=== PATIENT | female | born 1995 | race Two or more races ===

== ENCOUNTER 2023-10-08 17:56 | Emergency (ER) | payer MEDICAID, OTHER ==
[~2023-10-08] VITALS: Ht 154.9 cm; Wt 95.4 kg
[2023-10-08 18:00] VITALS: BP 149/87; PULSE 83; RESP 18; O2SAT 98
[2023-10-08 18:37] LABS: Basophils # (auto) 0.1 10 ^3/uL (0-0.2); Basophils % (auto) 0.3 % (0.0-2.0); Eosinophils # (auto) 0.1 10 ^3/uL (0-0.8); Eosinophils % (auto) 0.3 % (0.0-7.0); Hematocrit 41.4 % (36.0-46.0); Hemoglobin 13.9 g/dL (12.2-16.2); Lymphocytes # (auto) 1.9 10 ^3/uL (0.4-5.4); Lymphocytes % (auto) 8.7 % (10.0-50.0); Mean Corpuscular Hemoglobin 30.4 pg (28.0-32.0); Mean Corpuscular Hgb Conc. 33.6 g/dL (32.0-36.0); Mean Corpuscular Volume 90.5 fL (80.0-100.0); Monocytes # (auto) 1.4 10 ^3/uL (0-1.3); Monocytes % (auto) 6.3 % (0.0-12.0); Neutrophils # (auto) 18.6 10 ^3/uL (1.6-8.6); Neutrophils % (auto) 84.4 % (37.0-80.0); Nucleated Red Blood Cells % 0.1 %; Red Blood Cells 4.58 10^6/uL (4.0-5.20); Red Cell Distribution Width 12.9 % (11.8-14.3); White Blood Cell 22.1 10^3/uL (4.4-10.8)
[2023-10-08 18:56] LABS: Alanine Aminotransferase 17 U/L (7-40); Albumin 4.8 g/dL (3.2-4.8); Alkaline Phosphatase 75 U/L (46-116); Anion Gap 8 (5-15); Aspartate Aminotransferase 9 U/L (13-40); BUN/Creatinine Ratio 16.7 (10.0-20.0); Bilirubin, Total 0.3 mg/dL (0.2-1.0); Blood Urea Nitrogen 12 mg/dL (9-23); Calcium 9.9 mg/dL (8.7-10.4); Carbon Dioxide 22 mmol/L (20-30); Chloride 107 mmol/L (98-107); Glucose 101 mg/dL (74-106); Lipase 30 U/L (12-53); Potassium 3.9 mmol/L (3.5-5.1); Sodium 137 mmol/L (136-145); Total Protein 8.1 g/dL (5.7-8.2)
[2023-10-08 19:31] LABS: Urine Bacteria MOD /hpf (None Seen); Urine Blood TRACE /uL (Negative); Urine Clarity Turbid (Clear); Urine Color Yellow (Yellow); Urine Mucus FEW (None Seen); Urine Protein, UAD 1+ (Negative); Urine Specific Gravity 1.033 (1.001-1.035); Urine Urobilinogen Normal (Negative); Urine WBC 8 /hpf (0 - 5); Urine pH 5.5 (5.0-9.0)
[2023-10-08] MEDS ORDERED: ZOFR4T PO (23:53)
[2023-10-08] MEDS ORDERED: DICY10CA PO (23:53)
== END 2023-10-08 23:54 | disposition left against medical advice (07) ==
LOC: ER 17:56 → EDBD 17:56 → EDSEX 17:56 → ER 23:54
DX: R10.33 Periumbilical pain (principal); R10.2 Pelvic and perineal pain
CPT/HCPCS: 36415; 74176; 80053; 81001; 83690; 84702; 85025

== ENCOUNTER 2024-02-06 20:51 | Emergency (ER) | payer SELFPAY ==
[~2024-02-06] VITALS: Ht 154.9 cm; Wt 93.9 kg
[~2024-02-06 20:51] MED LIST: DICY10CA PO; ZOFR4T PO
[2024-02-06 22:09] VITALS: BP 114/60; TEMP 98.6
[2024-02-06] MEDS: KETOROLAC TROMETH 30 MG/ML 1ML VIAL IM ONE (22:09)
[2024-02-06 22:10] VITALS: PULSE 83; RESP 16; O2SAT 99
[2024-02-06 22:55] LABS: Rapid Influenza A Negative (Negative); Rapid Influenza B Negative (Negative)
[2024-02-06 22:56] LABS: COVID19 ANTIGEN SOFIA FIA NEGATIVE (NEGATIVE)
== END 2024-02-07 00:29 | disposition home or self-care (01) ==
LOC: ER 20:51
DX: B34.9 Viral infection, unspecified (principal); Z20.822 Contact with and (suspected) exposure to COVID-19
CPT/HCPCS: 36415; 87426; 87804; 96372; 99283; J1885

== ENCOUNTER 2024-03-13 00:17 | Emergency (ER) | payer SELFPAY ==
[~2024-03-13] VITALS: Ht 154.9 cm; Wt 93.8 kg
[2024-03-13 01:11] VITALS: BP 127/75; PULSE 84; RESP 20; TEMP 98.6; O2SAT 98
[2024-03-13] MEDS: DexAMETHasone SOD PHOS 10MG/1ML VIAL INJ IM ONE (01:26)
[2024-03-13] MEDS: KETOROLAC TROMETH 60MG/2ML VIAL IM ONE (01:26)
[2024-03-13] MEDS ORDERED: METH4PAK PO (01:35)
[2024-03-13] MEDS ORDERED: TIZA4TAB9 PO (01:35)
--- NOTE | 2024-03-13 01:36 | ED.PDOC ---
Back pain HPI HPI Comments This is a 22-year-old female patient presents to the ED chief complaint right- sided mid back pain. 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 States was at work earlier had to leave due to the pain. She states pain started 3 days ago. She rates it a 9/10 on pain scale. Describes it as throbbing sharp pain right side mid back nonradiating type pain. Has not tried any relief measures. Denies injury, numbness, weakness or any other symptoms. Chief Complaint: Back Pain Time Seen by MD: 00:57 Primary Care Provider: NIC Ha Notes: Nurses Notes, Medications, Allergies Allergies: Coded Allergies: No Known Drug Allergy (Verified Allergy, Unknown, 10/08/23) Home Meds Active Scripts Methylprednisolone (Medrol Dosepak) 4 Mg Ian, 4 MG PO UD for 6 Days, #21 TAB UAD Prov:HONG,SHAHRIAR [facility] 03/13/24 Tizanidine Hydrochloride (Zanaflex) 4 Mg Tab, 1 TAB PO QPM PRN for 6 Days, #6 TAB Prov:HONGSHAHRIAR Iqbal [facility] 03/13/24 Ondansetron Odt 4MG Tab (ZOFRAN PO) 4 Mg Tb, 4 MG PO Q6HP PRN, #20 TAB ODT TAB-DISSOLVE IN MOUTH, THEN SWALLOW Prov:LAUREEN PORTER DO 10/08/23 Dicyclomine Hcl (BENTYL CAPSULE) 10 Mg Cp, 2 CAP PO Q6HPRN PRN, #20 CAP 3 Ref ills Prov:LAUREEN PORTER DO 10/08/23 Information Source: Patient Mode of Arrival: Ambulatory Past Medical History PAST MEDICAL HISTORY: Denies Surgical History: Denies all surgeries PRESSER HAND History: Denies all PRESSER HAND Hx Family History Family History: Reviewed,noncontributory to illness Social History Smoker: Non-Smoker Alcohol: Denies ETOH Use Drugs: Denies Drug Use Lives In: Home Constitutional: denies: chills, diaphoresis, fatigue, fever, malaise, sweats, weakness, others EENTM: denies: blurred vision, double vision, ear bleeding, ear discharge, ear drainage, ear pain, ear ringing, eye pain, eye redness, hearing loss, mouth pain, mouth swelling, nasal discharge, nose bleeding, nose congestion, nose pain, photophobia, tearing, throat pain, throat swelling, voice changes, others Respiratory: denies: cough, hemoptysis, orthopnea, SOB at rest, shortness of breath, SOB with excertion, stridor, wheezing, others Cardiovascular: denies: chest pain, dizzy spells, diaphoresis, Dyspnea on exertion, edema, irregular heart beat, left arm pain, lightheadedness, palpitations, PND, syncope, others Gastrointestinal: denies: abdomen distended, abdominal pain, blood streaked bowels, constipated, diarrhea, dysphagia, difficulty swallowing, hematemesis, melena, nausea, poor appetite, poor fluid intake, rectal bleeding, rectal pain, vomiting, others Genitourinary: denies: abnormal vagina bleeding, burning, dyspareunia, dysuria, flank pain, frequency, hematuria, incontinence, pain, , vagina discharge, urgency, others Neurological: denies: dizziness, fainting, headache, left sided numbness, left sided weakness, numbness, paresthesia, pre-existing deficit, right sided numbness, right sided weakness, seizure, speech problems, tingling, tremors, weakness, others Musculoskeletal: reports: back pain; denies: gout, joint pain, joint swelling, muscle pain, muscle stiffness, neck pain, others Integumetry: denies: bruises, change in color, change in hair/nails, dryness, laceration, lesions, lumps, rash, wounds, others Allergic/Immunocompromised: denies: Difficulty Healing, Frequent Infections, Hives, Itching, others Hematologic/Lymphatic: denies: anemia, blood clots, easy bleeding, easy bruising, swollen glands, others Endocrine: denies: excessive hunger, excessive sweating, excessive thirst, excessive urination, flushing, intolerance to cold, intolerance to heat, unexplained weight gain, unexplained weight loss, others Psychiatric: denies: anxiety, bipolar disorder, depression, hopeless, panic disorder, schizophrenia, sleepless, suicidal, others Physical Exam General Appearance: No Apparent Distress, Normal HEENT: Pharynx Normal Neck: Full Range of Motion, Non-Tender Respiratory: Chest Non-Tender, Lungs Clear, No Respiratory Distress, Normal Breath Sounds Cardiovascular: No Edema, No Murmur, Normal Peripheral Pulses, Regular Rate/Rhythm Breast Exam: Deferred Gastrointestinal: Non Tender, Soft Genitalia: Deferred Pelvic: Deferred Rectal: Deferred Extremities: Normal capillary refill, Normal inspection, Normal range of motion, Non-tender, No pedal edema Musculoskeletal : Location: Right (Moderate tenderness palpated over thoracic right-sided musculature. Thoracic spine without crepitus, tenderness, step-offs. Strength sensory motion intact positive radial pulses.) Apperance: Normal Neurologic: Alert, physiatrist II-XII nml as Tested, No Motor Deficits, Normal Affect, Normal Mood, No Sensory Deficits Cerebellar Function: Normal Reflexes: Normal Skin: Dry, Normal Color, Warm Lymphatic: No Adenopathy Was a procedure done? Was a procedure done?: No Back Pain Differential Dx Differential Diagnosis: Fracture, Musculoskeletal Pain X-Ray, Labs, Meds, VS Vital Signs Date Time Temp Pulse Resp B/P (MAP) Pulse Ox O2 Delivery O2 Flow Rate FiO2 03/13/24 01:11 Room Air 03/13/24 01:11 98.6 84 20 127/75 (92) 98 98.6 03/13/24 00:40 98.6 84 20 127/75 (92) 98 Current Medications Medications (Trade) Dose Ordered Sig/Ninfa Route Start Time Stop Time Status Last Admin Ketorolac Tromethamine (Toradol Injection) 60 mg ONCE ONCE IM 03/13/24 01:30 03/13/24 01:31 DC 03/13/24 01:26 Dexamethasone Sodium Phosphate (Decadron Injection) 10 mg ONCE ONCE IM 03/13/24 01:30 03/13/24 01:31 DC 03/13/24 01:26 X-Ray, Labs, Meds, VS Comment Thoracic spine x-ray shows no acute findings or osseous lesions. Patient given Toradol 60 mg IM and Decadron 10 mg IM reports prevent pain and function. Requesting discharge at this time. Likely a muscle strain, we will start on tizanidine and Medrol Dosepak. Patient given note for work for tomorrow. Advised to rest avoid vigorous activity until pain is improved. Advised to follow up with PCP in 2-3 days as necessary con nurse reviewer physical therapy or further imaging such as MRI for continued symptoms. ER return precautions given. Patient agrees with discharge plan of care. Time of 1ST Reevaluation: 01:38 Reevaluation 1ST: Improved Patient Education/Counseling: Diagnosis, Treatment, Prognosis, Need For Follow Up Family Education/Counseling: No Family Present Departure 1 Departure Time of Disposition: 01:38 Impression: Primary Impression: Strain of muscle and tendon of back wall of thorax, initial encounter Disposition: HOME / SELF CARE / HOMELESS Condition: Stable e-Prescriptions Methylprednisolone (Medrol Dosepak) 4 Mg Ian 4 MG PO UD for 6 Days, #21 TAB UAD Prov: SHAHRIAR PITTS 03/13/24 Tizanidine Hydrochloride (Zanaflex) 4 Mg Tab 1 TAB PO QPM PRN for 6 Days, #6 TAB Prov: SHAHRIAR PITTS 03/13/24 Discharged With: Self Critical Care Note Critical Care Time?: No Stability Stability form required: SHAHRIAR Rodriguez Mar 13, 2024 01:36
--- NOTE | 2024-03-13 01:37 | DVH ---
INDICATION: pain COMPARISON: None TECHNIQUE:3 views of the thoracic spine were obtained. FINDINGS: The thoracic vertebral alignment is normal. The intervertebral disc spaces are well-maintained. No significant facet arthropathy is noted. No acute fracture, vertebral compression deformity or aggressive osseous lesions. The imaged thorax and abdomen are grossly unremarkable. IMPRESSION: No acute fracture.
== END 2024-03-13 01:40 | disposition home or self-care (01) ==
LOC: ER 00:17
DX: S29.012A Strain of muscle and tendon of back wall of thorax, initial encounter (principal); Z79.899 Other long term (current) drug therapy; X50.1XXA Overexertion from prolonged static or awkward postures, initial encounter; Y93.89 Activity, other specified; Y92.89 Other specified places as the place of occurrence of the external cause; Y99.8 Other external cause status
CPT/HCPCS: 72070; 96372; 99284; J1100; J1885